=== PATIENT | female | born 1960 | race African-American/Black ===

== ENCOUNTER 2020-12-21 14:19 | Inpatient (IN) | payer OTHER ==
[2020-12-21 18:06] VITALS: BMI 19.5
[2020-12-21] MEDS ORDERED: LOPERAMIDE HCL 2 MG CAPSULE PO PRN (21:17)
[2020-12-21] MEDS ORDERED: MAGNESIUM HYDROX 2400MG/30ML ORAL SUSPENSION 30 ML CUP PO PRN (21:17)
[2020-12-21] MEDS ORDERED: P-EPHED 60MG/TRIPROLIDI 2.5MG TABLET PO PRN (21:17)
[2020-12-21] MEDS ORDERED: MAGNESIUM CITRATE 300 ML BOTTLE PO PRN (21:17)
[2020-12-21] MEDS ORDERED: MAG HYDROX/AL HYDROX/SIMETH 30 ML UNIT-DOSE CUP PO PRN (21:17)
[2020-12-21] MEDS ORDERED: ACETAMINOPHEN 325 MG TABLET (FP) PO PRN (21:17)
[2020-12-21] MEDS: THIAMINE HCL 100 MG TABLET (FP) PO SCH (21:54)
[2020-12-21] MEDS: MELATONIN 5 MG TABLETS PO SCH (21:54)
[2020-12-21] MEDS ORDERED: TUBERCULIN PPD 5 TU/0.1ML VIAL ID ONE (21:57)
[2020-12-22] MEDS ORDERED: ALBUTEROL SO4 HFA INHALER IH ONE (07:42)
[2020-12-22] MEDS ORDERED: PATIENT'S OWN MEDICATION (NON-FORMULARY) (Amlodipine Bes/Olmesartan Med [Amlodipine-Olmesa PO SCH (10:00)
[2020-12-22] MEDS: PRENATAL VITAMINS W/ FOLIC ACID TABLET (FP) PO SCH (10:03)
[2020-12-22] MEDS: amLODIPine BESYLATE 10 MG TABLET (FP) PO SCH (10:03)
[2020-12-22] MEDS: LOSARTAN POTASSIUM 50 MG TABLET PO SCH (10:04)
[2020-12-22] MEDS: ABACAVIR/DOLUTEGRAVIR/LAMIVUDI (TRIUMEQ) TABLET -NF PO SCH (11:21)
[2020-12-22] MEDS ORDERED: PNEUMOCOCCAL 23 VACCINE 0.5 ML VIAL IM ONE (13:00)
[2020-12-22] MEDS ORDERED: PNEUMOC 13-VAL CONJ-DIP CRM/PF 0.5 ML DISP.SYRIN IM ONE (13:00)
[2020-12-22] MEDS ORDERED: FLU VACC QS2021-22(6MOS UP)/PF 60 MCG/0.5 ML SYRINGE IM ONE (13:00)
[2020-12-22] MEDS: guaiFENesin 200 MG/10 ML 10 ML UNIT-DOSE CUPS PO PRN (14:56)
[2020-12-22] MEDS: ALBUTEROL SO4 HFA INHALER IH PRN (16:30)
[2020-12-22] MEDS: THIAMINE HCL 100 MG TABLET (FP) PO SCH (21:31)
[2020-12-22] MEDS: rOPINIRole HCL 0.25 MG TABLET PO SCH (22:35)
[2020-12-22] MEDS: MELATONIN 5 MG TABLETS PO SCH (22:35)
[2020-12-23] MEDS: guaiFENesin 200 MG/10 ML 10 ML UNIT-DOSE CUPS PO PRN ×3 (06:20→19:29)
[2020-12-23] MEDS: IBUPROFEN 400 MG TABLET (FP) PO PRN (06:20)
[2020-12-23] MEDS ORDERED: PT OWN MED DRAWER 7, Y5N ONE (06:54)
[2020-12-23] MEDS: ABACAVIR/DOLUTEGRAVIR/LAMIVUDI (TRIUMEQ) TABLET -NF PO SCH (07:15)
[2020-12-23] MEDS: amLODIPine BESYLATE 10 MG TABLET (FP) PO SCH (10:12)
[2020-12-23] MEDS: LOSARTAN POTASSIUM 50 MG TABLET PO SCH (10:12)
[2020-12-23] MEDS: PRENATAL VITAMINS W/ FOLIC ACID TABLET (FP) PO SCH (10:12)
[2020-12-23] MEDS: ALBUTEROL SO4 HFA INHALER IH PRN ×2 (13:39→19:29)
[2020-12-23] MEDS: THIAMINE HCL 100 MG TABLET (FP) PO SCH (22:07)
[2020-12-23] MEDS: MELATONIN 5 MG TABLETS PO SCH (22:08)
[2020-12-23] MEDS: rOPINIRole HCL 0.25 MG TABLET PO SCH ×2 (22:09→22:19)
[2020-12-24] MEDS: ABACAVIR/DOLUTEGRAVIR/LAMIVUDI (TRIUMEQ) TABLET -NF PO SCH (07:20)
[2020-12-24] MEDS: LOSARTAN POTASSIUM 50 MG TABLET PO SCH (10:19)
[2020-12-24] MEDS: PRENATAL VITAMINS W/ FOLIC ACID TABLET (FP) PO SCH (10:19)
[2020-12-24] MEDS: amLODIPine BESYLATE 10 MG TABLET (FP) PO SCH (10:19)
[2020-12-24] MEDS: guaiFENesin 200 MG/10 ML 10 ML UNIT-DOSE CUPS PO PRN (10:19)
[2020-12-24 11:41] LABS: CALCIUM 9.4 mg/dL (8.5-10.1)
[2020-12-24 11:42] LABS: ALBUMIN 2.7 g/dl (3.4-5.0); BLOOD UREA NITROGEN 18.6 mg/dL (7-18)
[2020-12-24 11:43] LABS: HEMATOCRIT 35.8 % (32.4-45.2); HEMOGLOBIN 12.1 GM/dL (10.7-15.3); MCH 30.3 pg (25.7-33.7); MCHC 33.9 g/dl (32.0-36.0); MEAN CELL VOLUME 89.3 fl (80-96); MEAN PLT VOLUME 7.4 fl (7.5-11.1); PLATELET COUNT 310 10^3/uL (134-434); RBC 4.01 M/mm3 (3.60-5.2); RDW 13.2 % (11.6-15.6); WHITE BLOOD COUNT 5.8 K/mm3 (4.0-10.0)
[2020-12-24 11:45] LABS: CREATININE 1.2 mg/dL (0.55-1.3)
[2020-12-24 11:47] LABS: BILIRUBIN,TOTAL 0.3 mg/dL (0.2-1); TOT PROT 9.3 g/dl (6.4-8.2)
[2020-12-24] MEDS: guaiFENesin 600 MG TABLET.ER (FP) PO SCH ×2 (13:19→21:31)
[2020-12-24] MEDS: BUDESONIDE/FORMETEROL FUMARATE 80/4.5 mcg INHALER IH SCH ×2 (13:20→21:30)
[2020-12-24] MEDS: ALBUTEROL SO4 HFA INHALER IH PRN (16:50)
[2020-12-24] MEDS: IBUPROFEN 400 MG TABLET (FP) PO PRN (21:30)
[2020-12-24] MEDS: THIAMINE HCL 100 MG TABLET (FP) PO SCH (21:31)
[2020-12-24] MEDS: MELATONIN 5 MG TABLETS PO SCH (21:32)
[2020-12-24] MEDS: rOPINIRole HCL 0.25 MG TABLET PO SCH (21:32)
[2020-12-25] MEDS: ABACAVIR/DOLUTEGRAVIR/LAMIVUDI (TRIUMEQ) TABLET -NF PO SCH (07:22)
[2020-12-25 07:25] VITALS: TEMP 96.8
[2020-12-25] MEDS ORDERED: PT OWN MED DRAWER 7, Y5N ONE (09:09)
[2020-12-25] MEDS: LOSARTAN POTASSIUM 50 MG TABLET PO SCH (09:12)
[2020-12-25] MEDS: amLODIPine BESYLATE 10 MG TABLET (FP) PO SCH (09:12)
[2020-12-25] MEDS: guaiFENesin 600 MG TABLET.ER (FP) PO SCH (09:12)
[2020-12-25] MEDS: PRENATAL VITAMINS W/ FOLIC ACID TABLET (FP) PO SCH (09:12)
[2020-12-25] MEDS: BUDESONIDE/FORMETEROL FUMARATE 80/4.5 mcg INHALER IH SCH (09:13)
[2020-12-25 11:56] VITALS: BP 147/77; PULSE 94
== END 2020-12-25 14:10 | disposition home or self-care (01) | DRG 895 ==
LOC: YASAS 14:19 → Y5N 19:22
PROVIDERS: ADMIT Allergy & Immunology; ATTEND Allergy & Immunology
PROC: HZ42ZZZ Group Counseling for Substance Abuse Treatment, Cognitive-Behavioral (ICD-10-PCS; principal; 2020-12-21)
DX: F10.20 Alcohol dependence, uncomplicated (principal); F14.20 Cocaine dependence, uncomplicated; F17.210 Nicotine dependence, cigarettes, uncomplicated; F19.24 Other psychoactive substance dependence with psychoactive substance-induced mood disorder; F31.9 Bipolar disorder, unspecified; Z21 Asymptomatic human immunodeficiency virus [HIV] infection status; I10 Essential (primary) hypertension; J45.909 Unspecified asthma, uncomplicated; M19.90 Unspecified osteoarthritis, unspecified site; R05.9 Cough, unspecified; Z86.19 Personal history of other infectious and parasitic diseases; Z99.89 Dependence on other enabling machines and devices; Z91.410 Personal history of adult physical and sexual abuse
CPT/HCPCS: 36415; 80053; 85027; 86780; 90686; 90732; C9803; G0009; U0003; U0005